=== PATIENT | male | born 1980 | race Caucasian/White ===

== ENCOUNTER → 2021-06-21 12:43 | Outpatient (BNVA) | payer OTHER, SELFPAY | PROVIDERS: Visit Provider Physician Assistant Medical | DX: S80.01XA Contusion of right knee, initial encounter (principal); S80.811A Abrasion, right lower leg, initial encounter; W01.0XXA Fall on same level from slipping, tripping and stumbling without subsequent striking against object, initial encounter; M23.91 Unspecified internal derangement of right knee | CPT/HCPCS: 73564; 99203 ==

== ENCOUNTER → 2021-06-24 13:32 | Outpatient (BNVA) | payer OTHER, SELFPAY | PROVIDERS: Visit Provider Physician Assistant Medical | DX: M23.91 Unspecified internal derangement of right knee (principal) | CPT/HCPCS: 99213 ==

== ENCOUNTER → 2021-06-29 13:46 | Outpatient (BNVA) | payer OTHER, SELFPAY | PROVIDERS: Visit Provider Physician Assistant Medical | DX: S80.01XD Contusion of right knee, subsequent encounter (principal); X58.XXXD Exposure to other specified factors, subsequent encounter; M23.91 Unspecified internal derangement of right knee | CPT/HCPCS: 99213 ==

== ENCOUNTER → 2021-07-08 12:59 | Outpatient (BNVA) | payer OTHER, SELFPAY | PROVIDERS: Visit Provider Physician Assistant Medical | DX: S80.01XD Contusion of right knee, subsequent encounter (principal); X58.XXXD Exposure to other specified factors, subsequent encounter; M23.91 Unspecified internal derangement of right knee | CPT/HCPCS: 99213 ==

== ENCOUNTER 2021-07-19 14:57 | Outpatient (REF) | payer OTHER, SELFPAY ==
--- NOTE | ~2021-07-19 | MR_ITS ---
EXAMINATION: MR KNEE WITHOUT CONTRAST, RIGHT CLINICAL INFORMATION: Right knee pain and swelling. Medial/anterior pain and discomfort with weight-bearing. Evaluate for internal derangement. COMPARISON: Right knee radiographs dated 06/21/2021. TECHNIQUE: MRI of the knee without contrast was performed using routine sequences on a high-field scanner. FINDINGS: MENISCI: Medial Meniscus: Intact Lateral Meniscus: Intact LIGAMENTS: Cruciate: Intact Collateral: Intact EXTENSOR MECHANISM: Intact ARTICULAR CARTILAGE/BONE: Patellofemoral Compartment: Normal Medial Compartment: Non-depressed subchondral fracture within the posterior aspect of the medial tibial plateau measuring up to 1.3 cm in ML dimension. Prominent underlying marrow edema. No articular cartilage defect. Lateral Compartment: Normal JOINT FLUID AND BURSAE: Trace joint effusion. MR/MR knee RT wo con IMPRESSION: 1. Non-depressed subchondral fracture within the posterior aspect the medial tibial plateau measuring 1.3 cm in ML dimension with prominent underlying marrow edema. 2. Trace joint effusion. 3. No acute meniscal or ligamentous injury.
== END 2021-07-19 14:58 | disposition home or self-care (01) ==
LOC: HO.MRI 14:57
PROVIDERS: Visit Provider Internal Medicine
DX: M25.561 Pain in right knee (principal); M23.91 Unspecified internal derangement of right knee; Z91.81 History of falling
CPT/HCPCS: 73721

== ENCOUNTER → 2021-07-20 13:25 | Outpatient (BNVA) | payer OTHER, SELFPAY | PROVIDERS: Visit Provider Physician Assistant Medical | DX: S80.01XD Contusion of right knee, subsequent encounter (principal); X58.XXXD Exposure to other specified factors, subsequent encounter; M23.91 Unspecified internal derangement of right knee | CPT/HCPCS: 99213 ==

== ENCOUNTER 2021-07-22 14:00 | Outpatient (RCR) | payer OTHER, SELFPAY ==
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
--- NOTE | 2021-08-19 10:21 | MHC.PT.DC ---
[facility] [place] Office [place] Office [place] Office [address] Paxton Lawler [address] [phone] F: [phone] F: [phone] F: [phone] F: [phone] Physical Therapy Discharge Report Diagnosis: RIGHT KNEE CONTUSION, INTERNAL DERANGEMENT Date of Surgery: Date of Evaluation: 07/01/21 Date of Discharge: 07/20/21 Treatments to Date: 7 Cancellations to Date: 0 No Shows to Date: 0 Discharge Status: Discharge Summary: John had been progressing well with PT with significant improvement in ROM and strength. Minimal pain. At last attended visit, note states John arrived with no new complaints. He was continued with B LE strengthening exercises. Was challenged with eccentric step down. He would 8 inches very challenging therefore was done with 6 inches. Reports of feeling slightly unstable when he was bending knee past 20 degrees with bird dip. Overall he is progressing well. Continue challenging B LE strength in next session. No adverse response noted to any exercise. However, upon MRI he was found to have a compressed tibial plateau fracture and was referred to orthopedics prior to continuation of PT. As he has not contacted us for additional therapy we will DC at this time and are happy to continue PT in the future if needed. Electronically signed by: April Patel PT, DPT Please sign and return to therapist. Thank you for your referral.
== END 2021-08-19 10:22 | disposition home or self-care (01) ==
LOC: HO.PT 14:00
PROVIDERS: Visit Provider Physician Assistant Medical
DX: S80.01XD Contusion of right knee, subsequent encounter (principal); M23.91 Unspecified internal derangement of right knee
CPT/HCPCS: 97110; 97140; 97161; 97530

== ENCOUNTER → 2021-08-02 13:44 | Outpatient (BNVA) | payer OTHER, SELFPAY | PROVIDERS: Visit Provider Orthopaedic Surgery | DX: S82.141D Displaced bicondylar fracture of right tibia, subsequent encounter for closed fracture with routine healing (principal) | CPT/HCPCS: 99202 ==

== ENCOUNTER 2021-09-20 07:25 | Outpatient (REF) | payer OTHER, SELFPAY ==
--- NOTE | ~2021-09-20 | XR_ITS ---
EXAMINATION: XR KNEE, BILATERAL XR KNEE, RIGHT CLINICAL INFORMATION: Pain in knee. COMPARISON: None TECHNIQUE: AP bilateral knee. Right knee 2 views. FINDINGS: AP BILATERAL KNEE: There is loss of medial compartment joint space in both knees. The lateral compartment joint space is maintained normal. No visible acute fracture, dislocation or lytic process seen. The soft tissues are normal. RIGHT KNEE: The right knee joint space is maintained normal. There is no visible acute fracture, dislocation or subluxation seen. No abnormal joint effusion. XR/XR knee RT 2V IMPRESSION: 1. Mild early degenerative changes in the medial compartments of both knees. 2. The lateral and sunrise views of right knee are unremarkable.
--- NOTE | ~2021-09-20 | XR_ITS ---
EXAMINATION: XR KNEE, BILATERAL XR KNEE, RIGHT CLINICAL INFORMATION: Pain in knee. COMPARISON: None TECHNIQUE: AP bilateral knee. Right knee 2 views. FINDINGS: AP BILATERAL KNEE: There is loss of medial compartment joint space in both knees. The lateral compartment joint space is maintained normal. No visible acute fracture, dislocation or lytic process seen. The soft tissues are normal. RIGHT KNEE: The right knee joint space is maintained normal. There is no visible acute fracture, dislocation or subluxation seen. No abnormal joint effusion. XR/XR knee standing BI IMPRESSION: 1. Mild early degenerative changes in the medial compartments of both knees. 2. The lateral and sunrise views of right knee are unremarkable.
== END 2021-09-20 07:26 | disposition home or self-care (01) ==
LOC: HO.HOSX 07:25
PROVIDERS: Visit Provider Orthopaedic Surgery
DX: S82.141D Displaced bicondylar fracture of right tibia, subsequent encounter for closed fracture with routine healing (principal)
CPT/HCPCS: 73560; 73565; 99212

== ENCOUNTER 2021-11-01 11:54 | Outpatient (REF) | payer OTHER, BC, SELFPAY ==
--- NOTE | ~2021-11-01 | XR_ITS ---
EXAMINATION: XR KNEE, BILATERAL STANDING XR KNEE, RIGHT CLINICAL INFORMATION: Right knee pain. COMPARISON: Right knee radiographs on 09/20/2021. TECHNIQUE: AP view of both knees standing and lateral and sunrise views of the right knee. FINDINGS: There are no significant changes when compared to 09/20/2021. There is very subtle medial compartment joint space loss seen bilaterally. The lateral compartment joint space appears preserved. No evidence of fracture or dislocation. Dedicated views of the right knee demonstrate no significant effusion. The bones appear normally mineralized and there is no evidence of fracture or dislocation. XR/XR knee standing BI IMPRESSION: No significant changes from 09/20/2021. Subtle bilateral medial compartment joint space narrowing.
--- NOTE | ~2021-11-01 | XR_ITS ---
EXAMINATION: XR KNEE, BILATERAL STANDING XR KNEE, RIGHT CLINICAL INFORMATION: Right knee pain. COMPARISON: Right knee radiographs on 09/20/2021. TECHNIQUE: AP view of both knees standing and lateral and sunrise views of the right knee. FINDINGS: There are no significant changes when compared to 09/20/2021. There is very subtle medial compartment joint space loss seen bilaterally. The lateral compartment joint space appears preserved. No evidence of fracture or dislocation. Dedicated views of the right knee demonstrate no significant effusion. The bones appear normally mineralized and there is no evidence of fracture or dislocation. XR/XR knee RT 2V IMPRESSION: No significant changes from 09/20/2021. Subtle bilateral medial compartment joint space narrowing.
== END 2021-11-01 11:55 | disposition home or self-care (01) ==
LOC: HO.HOSX 11:54
PROVIDERS: Visit Provider Orthopaedic Surgery
DX: S82.141D Displaced bicondylar fracture of right tibia, subsequent encounter for closed fracture with routine healing (principal); M25.561 Pain in right knee; X58.XXXD Exposure to other specified factors, subsequent encounter
CPT/HCPCS: 73560; 73565; 99212

== ENCOUNTER 2021-12-22 14:00 | Outpatient (RCR) | payer OTHER, BC, SELFPAY ==
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
--- NOTE | 2022-01-11 11:40 | MHC.PT.DC ---
[facility] [place] Office [place] Office [place] Office [address] Paxton Lawler [address] [phone] F: [phone] F: [phone] F: [phone] F: [phone] Physical Therapy Discharge Report Diagnosis: DISPLACED BICONDYLAR FX OF TIBIA Date of Surgery: NA. ORIGINAL INJURY 06/18/21 Date of Evaluation: 10/20/21 Date of Discharge: 01/11/22 Treatments to Date: 11 Cancellations to Date: No Shows to Date: Discharge Status: Achieved Goals Improved Function Independent with HEP Patient Elected to Stop Discharge Summary: HAS MET MOST PT GOALS EXCEPT RTW (Pt REPORTS HE DOESNT THINK HE IS READY TO RTW YET). TO SEE DR LANDERS ON [place]...ASSESS. DC WITH HOME PROG AND ED RE PROGRESSION VS CONT IN PT 1X/WK FOR HIGH LEVEL ACTIVITIES Pt WAS SEEN BY ORTHO AND PER HIS NOTE WAS FINISHED WITH PT. NO FURTHER APPTS MADE BY Pt Electronically signed by: KRISTY GUTHRIE PT Please sign and return to therapist. Thank you for your referral.
== END 2022-01-11 11:42 | disposition home or self-care (01) ==
LOC: HO.PTWFD 14:00
PROVIDERS: PCP Internal Medicine; Visit Provider Orthopaedic Surgery
DX: S82.141D Displaced bicondylar fracture of right tibia, subsequent encounter for closed fracture with routine healing (principal)
CPT/HCPCS: 97110; 97140; 97161; 97530

== ENCOUNTER 2021-12-27 11:56 | Outpatient (REF) | payer OTHER, BC, SELFPAY ==
--- NOTE | ~2021-12-27 | XR_ITS ---
EXAMINATION: KNEE X-RAY CLINICAL INFORMATION: Pain COMPARISON: Previous x-rays October 2021 TECHNIQUE: Standing AP view of both knees and lateral and sunrise view of the right kidney FINDINGS: Right knee: Bone alignment is normal. No fracture or dislocation is seen. Joint spaces are normal. There is no joint effusion. Standing AP view of the left knee is normal XR/XR knee standing BI IMPRESSION: Unremarkable exam.
--- NOTE | ~2021-12-27 | XR_ITS ---
EXAMINATION: KNEE X-RAY CLINICAL INFORMATION: Pain COMPARISON: Previous x-rays October 2021 TECHNIQUE: Standing AP view of both knees and lateral and sunrise view of the right kidney FINDINGS: Right knee: Bone alignment is normal. No fracture or dislocation is seen. Joint spaces are normal. There is no joint effusion. Standing AP view of the left knee is normal XR/XR knee RT 2V IMPRESSION: Unremarkable exam.
== END 2021-12-27 11:57 | disposition home or self-care (01) ==
LOC: HO.HOSX 11:56
PROVIDERS: Visit Provider Orthopaedic Surgery
DX: M25.569 Pain in unspecified knee (principal)
CPT/HCPCS: 73560; 73565; 99212

== ENCOUNTER → 2022-02-14 13:54 | Outpatient (BNVA) | payer OTHER, BC, SELFPAY | PROVIDERS: PCP Internal Medicine; Visit Provider Orthopaedic Surgery | DX: S82.141A Displaced bicondylar fracture of right tibia, initial encounter for closed fracture (principal); M25.461 Effusion, right knee | CPT/HCPCS: 99212 ==

== ENCOUNTER 2022-03-14 16:29 | Outpatient (REF) | payer OTHER, BC, SELFPAY ==
--- NOTE | ~2022-03-14 | MR_ITS ---
EXAMINATION: MR KNEE WITHOUT CONTRAST, RIGHT CLINICAL INFORMATION: Displaced bicondylar fracture of the tibia. Patellar pain. Anterior swelling. COMPARISON: MRI dated 07/19/2021 TECHNIQUE: MRI of the knee without contrast was performed using routine sequences on a high-field scanner. FINDINGS: MENISCI: Medial Meniscus: Intact Lateral Meniscus: Intact LIGAMENTS: Cruciate: Intact Collateral: Intact EXTENSOR MECHANISM: Quadriceps and patellar tendons are intact. Retinacula are normal. IT band is unremarkable. Peripatellar fat pads are normal. ARTICULAR CARTILAGE/BONE: Patellofemoral Compartment: There is a thin medial patellar plica which crosses the medial trochlear facet with does not produce surrounding chondromalacia or edema signal. Patella is appropriately situated at the trochlea. Articular cartilage is well-preserved. Normal trochlear morphology. Medial Compartment: Previously seen nondisplaced fracture at the medial tibial plateau has healed and is no longer apparent. Articular cartilage is normal. No marrow edema. Normal tibial morphology. Lateral Compartment: Normal JOINT FLUID AND BURSAE: No joint effusion or Guzman's cyst. MR/MR knee RT wo con IMPRESSION: Healed tibial plateau fracture. No residual MRI abnormalities at the knee. Small medial plica without specific findings of plica syndrome.
== END 2022-03-14 16:30 | disposition home or self-care (01) ==
LOC: HO.MRI 16:29
PROVIDERS: Visit Provider Orthopaedic Surgery
DX: S82.141A Displaced bicondylar fracture of right tibia, initial encounter for closed fracture (principal); M25.461 Effusion, right knee; X58.XXXA Exposure to other specified factors, initial encounter; Y93.9 Activity, unspecified; Y92.9 Unspecified place or not applicable; Y99.9 Unspecified external cause status
CPT/HCPCS: 73721

== ENCOUNTER → 2022-03-28 13:34 | Outpatient (BNVA) | payer OTHER, BC, SELFPAY | PROVIDERS: PCP Internal Medicine; Visit Provider Orthopaedic Surgery | DX: S82.141A Displaced bicondylar fracture of right tibia, initial encounter for closed fracture (principal); X58.XXXA Exposure to other specified factors, initial encounter; Y93.89 Activity, other specified; Y92.69 Other specified industrial and construction area as the place of occurrence of the external cause; Y99.0 Civilian activity done for income or pay | CPT/HCPCS: 99212 ==

== ENCOUNTER → 2022-05-09 14:26 | Outpatient (BNVA) | payer OTHER, BC, SELFPAY | PROVIDERS: PCP Internal Medicine; Visit Provider Orthopaedic Surgery | DX: S82.143D Displaced bicondylar fracture of unspecified tibia, subsequent encounter for closed fracture with routine healing (principal) | CPT/HCPCS: 99212 ==

== ENCOUNTER → 2022-06-20 14:21 | Outpatient (BNVA) | payer OTHER, BC, SELFPAY | PROVIDERS: PCP Internal Medicine; Visit Provider Orthopaedic Surgery | DX: S82.141A Displaced bicondylar fracture of right tibia, initial encounter for closed fracture (principal) | CPT/HCPCS: 20610; 99212; J1100 ==

== ENCOUNTER → 2022-06-27 11:58 | Outpatient (BNVA) | payer OTHER, BC, SELFPAY | PROVIDERS: PCP Internal Medicine; Visit Provider Orthopaedic Surgery | DX: Z13.89 Encounter for screening for other disorder (principal) ==

== ENCOUNTER → 2022-08-01 14:19 | Outpatient (BNVA) | payer OTHER, BC, SELFPAY | PROVIDERS: Visit Provider Orthopaedic Surgery | DX: M25.561 Pain in right knee (principal); S82.141D Displaced bicondylar fracture of right tibia, subsequent encounter for closed fracture with routine healing | CPT/HCPCS: 99212 ==

== ENCOUNTER 2022-08-23 12:37 | Day surgery (SDC) | payer OTHER, SELFPAY ==
[2022-08-17 14:54] VITALS: BMI 29.5
--- NOTE | 2022-08-22 09:50 | P.CONAN_ITS ---
Documented by User: Raeann Corey NP 08/22/22 09:50 HPI - Anesthesia Eval Consult details Narrative: 41yo M for Knee Arthroscopy [facility] Active Problems Active Problems: All Active Problems (Updated 08/17/22 @ 14:53 by Fozia Goodrich RN) Tibial plateau fracture (Acute) Effusion, left knee (Acute) Knee effusion, right (Acute) Right knee pain (Acute) Past Medical History Medical History (Updated 08/17/22 @ 14:53 by Fozia Goodrich RN) No pertinent past medical history Surgical History Surgical History (Updated 08/23/22 @ 13:57 by Madison Blank RN) History of vasectomy Hx of tooth extraction Social History Social History Are you a primary small animal caretaker to a significant other at home: No Do you presently have visiting nurse or other home services: No Patient Tobacco Use Status: Never used Tobacco Are you DNR?: No Advance Directives: No Advance Directives Information Provided: Yes Advance Directives on File: No Recently lost weight without trying: No Eating poorly because of decreased appetite: No Nutrition Risks: No Nutritional Risk Meds Allergies Allergy/AdvReac Type Severity Reaction Status Date / Time No Known Allergies Allergy Verified 08/17/22 14:53 Exam Exam Date and Time: August 22, 2022 0950 Height,Weight and Vital Signs: Height 6 ft 2 in Weight 104.326 kg Assessment and Plan Assessment Anesthesia Assessment: Chart Reviewed Documented by User: Pierre Arcos MD 08/23/22 17:29 [facility] Past Medical History Medical History (Updated 08/17/22 @ 14:53 by Fozia Goodrich RN) No pertinent past medical history Family History Family history of problems with anesthesia: No Surgical History Surgical History (Updated 08/23/22 @ 13:57 by Madison Blank RN) History of vasectomy Hx of tooth extraction History of Problems with Anesthesia: No Social History Social History Are you a primary small animal caretaker to a significant other at home: No Do you presently have visiting nurse or other home services: No Patient Tobacco Use Status: Never used Tobacco Are you DNR?: No Advance Directives: No Advance Directives Information Provided: Yes Advance Directives on File: No Recently lost weight without trying: No Eating poorly because of decreased appetite: No Nutrition Risks: No Nutritional Risk Meds Allergies Allergy/AdvReac Type Severity Reaction Status Date / Time No Known Allergies Allergy Verified 08/17/22 14:53 Exam Airway Mallampati Class: III TM Dist: >3cm Neck ROM: Full Loose/Missing/Broken Teeth: No Assessment and Plan Assessment Anesthesia Assessment: Anesthesia Plan Discussed Final Anesthetic Review Family History of Problems with Anesthesia: No History of Problems with Anesthesia: No NPO: Yes ASA Class: II Final Preanesthetic Review: No Changes in Pt Med Stat, Meds/Allgs Chart Reviewed, Consent Obtained/Reviewed and Anes Risks/Benef Reviewed Patient Risk: Low Procedure Risk: Low Anesthetic Plan Anesthetic Plan: GA Disposition: Standard PACU
[2022-08-23] VITALS (10 sets, daily range): BP systolic 122–147; BP diastolic 74–91; PULSE 82–108; RESP 11–20; TEMP 36.6–36.9; O2SAT 95–98
[2022-08-23] MEDS: Lactated Ringers 1,000 ML 100 ML IVCONT (13:56)
--- NOTE | 2022-08-23 15:45 | MHC.SHP ---
Pre-Procedural Eval Section A Date of Service: 08/23/22 The patient is an INPATIENT: No Changes since office visit: No Cold of Flu in the past 2 weeks, No New Medical Problems, No Changes in Medication and No Patient answered all questions The History & Physical has been completed within 30 days and I have reviewed it.: Yes Section B Chief Complaint: Pain in right knee Allergies: Allergies Allergy/AdvReac Type Severity Reaction Status Date / Time No Known Allergies Allergy Verified 08/17/22 14:53 Plan I have reviewed the history and physical and performed a pertinent physical examination on my patient. No changes have occurred unless specified. Time Spent With Patient Time: Total time managing care of this patient today ____ minutes.
--- NOTE | 2022-08-23 16:47 | PM.OP ---
Brief Operative Note Date of Service: 08/23/22 Pre-op diagnosis: Right knee internal derangement Post-op diagnosis: other (Right knee medial plica) Procedure: Right knee with plica resection Surgeon: Bob Gonzalez MD Anesthesia: GETA and local Was an Stove Carriage Operator used for this Procedure?: No Estimated blood loss (mL): 0 Tourniquet time (min): 15 IV fluids (mL): 500 Pathology: none sent Condition: stable Disposition: PACU
[2022-08-23] MEDS: fentaNYL citrate/PF 100 MCG/2 ML VIAL 25 MCG IVPUSH (17:34)
[2022-08-23] MEDS: Acetaminophen 325 MG TABLET 650 MG PO (17:40)
[2022-08-23] MEDS: oxyCODONE HCl Immed Release 5 MG TABLET PO (17:41)
[2022-08-23] MEDS: Ketorolac Tromethamine 30 MG/ML VIAL 15 MG IVPUSH (17:48)
--- NOTE | 2022-08-25 13:22 | W.PM.OPN ---
Operative Note Operative Note Date of Service: 08/23/22 Narrative: Date of Service: 08/23/22 Pre-op diagnosis: Right knee internal derangement Post-op diagnosis: other (Right knee medial plica) Procedure: Right knee with plica resection Surgeon: Bob Gonzalez MD Anesthesia: GETA and local Was an Geologic Technician used for this Procedure?: No Estimated blood loss (mL): 0 Tourniquet time (min): 15 IV fluids (mL): 500 Pathology: none sent Condition: stable Disposition: PACU Procedure in detail: Patient was brought to the operating room placed supine on the arthroscopic table and prepped and draped in standard sterile fashion. A time-out was called to identify proper site proper procedure proper surgeon and IV antibiotics per weight were administered. I began by exsanguinating the limb and insufflating tourniquet to 300 mm Hg. Then made a standard anterolateral stab incision. The knee was insufflated with water and 30 degree arthroscope was placed. There was grade 0 fibrillations of the patella but overall suprapatellar pouch was clean and the gutters were clean.There was a prominent and abrading medial plica that made descension into the medial compartment difficult. I descended into the medial compartment anteriorly where I made my medial portal under direct visualization. There was a normal medial and lateral compartment and the ACL was intact. I used a combination of shaver and cautery to remove the medial plica and some additional fibrous bandes of the the distal lateral aspct of the lateral gutter. I did a limited debridement of the infra-patellar fat pad and the MF ligament was left intact. I then removed all instrumentation and closed the portals with skin glue. 25 mL of 2% Marcaine with epinephrine was injected into the joint and the surrounding soft tissues. Patient was then placed in sterile dressing extubated brought recovery room stable condition. There were no known complications.
== END 2022-08-23 18:25 | disposition home or self-care (01) ==
LOC: HO.SSS 12:38
PROVIDERS: Visit Provider Orthopaedic Surgery
PROC: (CPT 29870; principal; 2022-08-23 15:00)
DX: M25.561 Pain in right knee (principal); M23.91 Unspecified internal derangement of right knee; M67.51 Plica syndrome, right knee
CPT/HCPCS: 29876; J0690; J1100; J1885; J2250; J2405; J3010

== ENCOUNTER → 2022-09-19 14:17 | Outpatient (BNVA) | payer OTHER, BC, SELFPAY | PROVIDERS: Visit Provider Physician Assistant | DX: Z13.89 Encounter for screening for other disorder (principal) ==

== ENCOUNTER → 2022-10-20 13:53 | Outpatient (BNVA) | payer OTHER, BC, SELFPAY | PROVIDERS: Visit Provider Orthopaedic Surgery | DX: Z47.89 Encounter for other orthopedic aftercare (principal); Z98.890 Other specified postprocedural states | CPT/HCPCS: 99212 ==

== ENCOUNTER 2022-12-09 13:45 | Outpatient (AMB) | payer BC, SELFPAY ==
--- NOTE | 2022-12-09 13:49 | A.OFFVIS_ITS ---
Intake Vital Signs 12/09/22 13:54 Height 6 ft 2 in Weight 230 lb BMI 29.5 Intake Visit Reasons: OV- S/P -RT knee WC 08/23/22 NE Intake Note: John is a 42 year old male who presents today for a post operative appointment s/p Right Knee 08/23/22. States he is doing a little bit better with his ROM. Cont's to have pain and swelling. Allergies No Known Allergies Allergy (Verified 12/09/22 13:53) HPI OV- S/P -RT knee WC 08/23/22 NE 2 HPI Details 42-year-old male who presents in the office today 3 month status post right knee arthroscopy with plica resection, which was performed on 08/23/[address] Gonzalez. He states he is doing a little better with his ROM. He states he continues to have pain and edema. He states the edema has been improving. He states the physical therapist was stating it was being caused by the quad not being strong enough. He states he is concerned with the pain and edema. He states he gets increased pain in the front of his knee with walking down stairs and prolonged ambulation. He denies tingling. He confirms occasional numbness when he knee leonora. He states it leonora frequently. He states he went for a walk and the knee gave out 6 time. He confirms he has 2 session remaining of physical therapy. He feels he could do the exercises at home. He will continue to work with physical therapy to contin ue to work on quad strength. [facility] Medical History No pertinent past medical history Surgical History History of vasectomy Hx of tooth extraction Social History Are you a primary personal care service provider to a significant other at home: No Do you presently have visiting nurse or other home services: No Patient Tobacco Use Status: Never used Tobacco Review of Systems Const All systems reviewed & are unremarkable except as noted in HPI and below Physical Exam Vital Signs: BMI result Body Mass Index 29.5 Const General: cooperative and no acute distress Orientation/consciousness: patient oriented x3 Resp Effort & Inspection: normal respiratory effort and able to speak in complete sentences Cardio Peripheral pulses: Peripheral pulses 2+ throughout Neuro General: patient oriented x3 Extrem Other: Right knee: Incision site is fully healed. No signs of infection. ROM is 0-100 degrees. NVI. Psych Mental Status: mental status grossly normal Assessment & Plan Assessment & Plan (1) Status post arthroscopic knee surgery: Comment: right knee arthroscopy with plica resection 08/23/2022 NE Code(s): Z98.890 - Other specified postprocedural states Plan Mr. Castro is a 42-year-old male who presents in the office today 3 month status post right knee arthroscopy with plica resection, which was performed on 08/23/[address] Gonzalez. He states he is doing a little better with his ROM. He states he continues to have pain and edema. He states the edema has been improving. He states the physical therapist was stating it was being caused by the quad not being strong enough. He states he is concerned with the pain and edema. He states he gets increased pain in the front of his knee with walking down stairs and prolonged ambulation. He denies tingling. He confirms occasional numbness when he knee leonora. He states it leonora frequently. He states he went for a walk and the knee gave out 6 time. He confirms he has 2 session remaining of physical therapy. He feels he could do the exercises at home. He will continue to work with physical therapy to continue to work on quad strength. He will call the office if physical therapy needs a new order. He states he is supposed to be getting Cryocuff, but has not heard anything from them. Follow up will be in 2-[address] Gonzalez, or sooner if needed. Patient Instructions: Scribed for Laura Jackson PA-C by Shanice Stover biomedical instrument technician, on 12/07/2022 at 1:52 pm, EST. Your attestation Coding Level of Care Code Est Pt Level 3 (90659) Diagnoses Status post arthroscopic knee surgery Z98.890
[2022-12-09 13:54] VITALS: BMI 29.5
== END 2022-12-09 14:40 | disposition home or self-care (01) ==
PROVIDERS: Visit Provider Physician Assistant
DX: S82.141D Displaced bicondylar fracture of right tibia, subsequent encounter for closed fracture with routine healing (principal)
CPT/HCPCS: 99213

== ENCOUNTER → 2022-12-09 13:45 | Outpatient (BNVA) | payer OTHER, BC, SELFPAY | PROVIDERS: Visit Provider Physician Assistant | DX: M25.561 Pain in right knee (principal); R60.9 Edema, unspecified; Z98.890 Other specified postprocedural states | CPT/HCPCS: 99212 ==

== ENCOUNTER → 2022-12-13 14:00 | Outpatient (RCR) | payer OTHER, BC, SELFPAY ==
--- NOTE | 2022-09-09 09:36 | MHC.PT.OD ---
[facility] [place] Office [place] Office [place] Office [address] Paxton Lawler [address] [phone] F: [phone] F: [phone] F: [phone] F: [phone] Physical Therapy Daily Note Diagnosis: PT eval and treat: Z98.890: Other specified postprocedural states, status post arthroscopic knee surgery 08/25/22 signed by Laura Amezcua PA-C Date of Surgery: 08/23/22 Date of Evaluation: 09/02/22 Date of Treatment: 09/09/22 Treatments to Date: Cancellations to Date: No Shows to Date: Authorized Visits: 2 Insurance End Date: Precautions/ Contraindications:WBAT R LE Subjective: Pt called to cancel appt at 11:00am stated he had to stay at home had digital librarian's coming. Pt was offered different time but deferred taking an appt. Pain Score and Location: 6 R knee Objective Flowsheet: Tests & Measures see eval Exercises Seated calf stretch with strap 3x30 sec Seated hamstring stretch x 30 sec APs x 30 Quad set 5 sec hold 2x10 reps Quad set + SLR (AAROM with therapist assist) 2x5 reps Heel slides 5 sec hold 2x10 reps Icing knee, performing low grade ROM often and frequently, need to obtain recommendation from [place] office on what to take over the counter to ease sx, reports use of meloxicam... phone call placed to ortho therapist spoke with Paulette during appt time who was going relay inquiry to Laura Jackson regarding recommendations. Education re: self massage for gentle HS posterior knee self care in combo with goal of increasing knee extension AROM Gait training with B crutches (pt ambulated in with B crutches not weightbearing through RLE) with step through pattern. He has decreased heel strike through RLE with decreased weight bearing noted throughout RLE vs LLE, over compensation with B UEs on crutches. ICE TO R KNEE END OF SESSION X 5 MIN Modalities Assessment: 09/09/22: Pt called to cancel appt Has roofers coming has to stay home. 09/07/22:Pt is motivated with PT however he continues to lack ROM. He is able to achieve -15 deg knee extension, and achieved 60 deg knee flexion this date. He has fair quad activation noted with quad set and is unable to perform SLR without assist. ?Pt may benefit from trial of NMES if he continues to lack quad strength (if no contraindications to modalities). Discussed importance of performing HEP, pt verbalized understanding. No adverse reaction to PT this date. Continue to progress per pt tolerance. PT Plan: 3x/week x 6 weeks ROM ext>flex quad strengthening, pre gait gait trainig with crutch for stairs. Short Term Goals: 1. AAROM R knee extension to -10 degrees. 2. AAROM R knee flexion to 90 degrees. 3. SLR into R knee extension with good eccentic control. 4. Wean from use of 2>1> no axillary crutches with symmetrical weight-bearing and good stance control R LE. 5. Negotiate an 8 inch step with good dynamic balance. 6. Ascend/descend 8 inch step with good dynamic balance. Inventory Control/Shipping Receiving Goals: 1. AAROM>AROM R knee extension to 0 degrees. 2. AAROM R knee flexion to 130 degrees 3. Reciprocal gait pattern with no AD community distances on uneven terrain. 4. Demonstrate functional squat symmetrically with good dyamicc balance. 5. Strength 5/5 R knee extension. 6. 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 7. Resume jog>running program as cleared per . Electronically signed by: Archana Causey, PT, DPT
--- NOTE | 2022-09-19 11:44 | MHC.PT.OD ---
[facility] [place] Office [place] Office [place] Office [address] Paxton Lawler [address] [phone] F: [phone] F: [phone] F: [phone] F: [phone] Physical Therapy Daily Note Diagnosis: PT eval and treat: Z98.890: Other specified postprocedural states, status post arthroscopic knee surgery 08/25/22 signed by Laura Amezcua PA-C Date of Surgery: 08/23/22 Date of Evaluation: 09/02/22 Date of Treatment: 09/16/22 Treatments to Date: Cancellations to Date: No Shows to Date: Authorized Visits: 2 Insurance End Date: Precautions/ Contraindications:WBAT R LE AROM -8 to 80 AAROM seated 90 AAROM heel slide in supine 92 Subjective: Presents to PT with two crutches, reports he stopped taking naprozen and anti-inflammatories last week. Reports has been performing knee stretches 1x/daily. Has been doing QS multiple times daily. Has reported knee buckling several times. To ortho Monday at 2:30pm. Pain Score and Location: 6 R KNEE Objective Flowsheet: Tests & Measures Pt offered PT appts for next Monday and Monday in PT due to concern for motion stiffness. Pt deferred Monday due to ortho appt at 2:30pm. Pt offered 10 am or 11am Monday. Exercises AAROM seat #12 for gentle rocking> able to make posterior revolution after 2 minutes with cues for guidance/support. NO added resistance AROM knee ext -8 degrees. Review of seated HS and gastroc stretch (pt expresses has been performing once daily vs recommendation of 3x/daily), AAROM seated heel slides cues for reduction of guarding and cues to increase flexion seated heel slide able to achieve 90 degrees, AAROM seated heel slide with strap to 92 degrees. AROM quad set with towel roll x 5 sec hold x 2 sets 10R, quad set without towel roll x 10R with improved quad contraction observed, AAROM SLR with aide of therapist midrange to height of buchanan, educated re: AAROM for SLR for home with cues to ensure quad activation first control, AAROM strap in supine to 92 degrees. Icing knee, performing low grade ROM often and frequently, need to obtain recommendation from MD office on what to take over the counter to ease sx, reports use of meloxicam... phone call placed to ortho therapist spoke with Paulette during appt time who was going relay inquiry to Laura Jackson regarding recommendations. Education re: self massage for gentle HS posterior knee self care in combo with goal of increasing knee extension AROM Review of gait training with crutches for ascending/descending with use no rail reviewed (as pt reports no entrance to primary entrance of home). ICE TO R KNEE END OF SESSION X 5 MIN Modalities Assessment: 09/16/22: Pt AROM -8 to 80, AAROM -5 to 92 degrees. Weak quad requires AAROM assist for SLR at this time (for partial ROM). Some hx buckling reported reassured this is likey due to his swelling/lack of full extension. Pt encouraged to increase weight-bearing through his R LE (noted to weight shift away from his R LE) and perform increased AROM/AAROM flexion of knee (observed guarding and not bending knee during functional mobility). Pt encouraged to continue AAROM ext>flexion with a higher stretching frequency at home. Therapist is advising increased frequency of PT to 3x/wek and he was given a third appt due to poor ROM/ stiffness. He states he stopping taking his anti-inflammatories last week (Monday) and was advised to go back to using these until he could address with his surgeon. Reiterated the importance of gaining full extension as a priority. Pt continues to use two crutches this date, we reviewed gait training in how to taper to one crutch as able. Pt to see orthopedics today 09/19/22 at 2:30pm. PT Plan: 3x/week x 6 weeks ROM ext>flex quad strengthening, pre gait gait trainig with crutch for stairs. Short Term Goals: 1. AAROM R knee extension to -10 degrees. 2. AAROM R knee flexion to 90 degrees. 3. SLR into R knee extension with good eccentic control. 4. Wean from use of 2>1> no axillary crutches with symmetrical weight-bearing and good stance control R LE. 5. Negotiate an 8 inch step with good dynamic balance. 6. Ascend/descend 8 inch step with good dynamic balance. Group Home Goals: 1. AAROM>AROM R knee extension to 0 degrees. 2. AAROM R knee flexion to 130 degrees 3. Reciprocal gait pattern with no AD community distances on uneven terrain. 4. Demonstrate functional squat symmetrically with good dyamicc balance. 5. Strength 5/5 R knee extension. 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 7. Resume jog>running program as cleared per MD. Electronically signed by: Archana Causey, PT, DPT
--- NOTE | 2022-10-14 15:40 | MHC.PT.OD ---
[facility] [place] Office [place] Office [place] Office [address] Paxton Lawler [address] [phone] F: [phone] F: [phone] F: [phone] F: [phone] Physical Therapy Daily Note Diagnosis: PT eval and treat: Z98.890: Other specified postprocedural states, status post arthroscopic knee surgery 08/25/22 signed by Laura Amezcua PA-C Date of Surgery: 08/23/22 Date of Evaluation: 09/02/22 Date of Treatment: 10/14/22 Treatments to Date: 16 Cancellations to Date: No Shows to Date: Authorized Visits: 16 Insurance End Date: 10/14/22 Precautions/ Contraindications:WBAT Subjective: Pt expressing increasing confidence everyday I feel better with it , reports attempting to mow lawn with rider, was able to get on/off mower with hesitation, reports challenged with emptying bags on back. Continues to report buckling with straight ambulation randomly at times. (Presents using adjustable cane) but reports has been using it less in the home. Reports use of 600mg ibuprofen and ice, reports increased swelling yesterday. Pain Score and Location: 5 R KNEE (MEDIAL) Objective Flowsheet: Tests & Measures AROM 0 degrees ext AAROM flexion 135 degrees Improving strength with SLR Unable to perform step-up 4 inch or more without report of pain. Weakness/ challenge w/ quad work R LE. Pt has resumed driving. 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 Frontal step-ups 2 inch trialed (pain anterior knee so this was D/C). AAROM heel slide with strap x 10R x 20 sec hold to 135 degrees. Passive knee extension with bolster x 10 minutes at end of session with ice strapped anterior/posterior knee. Toe taps in standing CKC x 2 sets 10R. STANDING FOR STEP UPS 6 INCH STEP LEADING WITH R UP AND L DOWN X 5 R, SIDEWARDS X 10 R, LUNGE ON STEP WITH KNEE FLEXION FOR TAP UPS (WITH BARS) X 10 R, TKE/PUSH THROUGHS WITH R LE ON BOSU, LEG PRESS WITH GREEN TB IN SIT X 10 R ROCKTAPE for V strip tibiofemoral joint off-loading pressure with education re: application/removal trialed with step-up/down TKE with black band x sets 10R , cues for heel strike and increased knee extension in stance. Therapist called [facility] to inquire ability to borrow a std cane as pt does not have one and will not need terminal manager vs purchasing one, LM with nurse Alexandra. Patient to follow up with this. [facility] [address] [place] [address] [address] [place] [address] Office Visit Report Signed Patient: John CastroMR#: [id number] : 1980Acct:[id number] Age/Sex: 41 / MADM/SER Date: 09/19/22 Loc: HO.HOSADM/SER Time:1417 Attending Provider: Laura Jackson PA-C cc: Physician,Unknown ~ Intake Vital Signs 09/19/22 14:27 Height 6 ft 2 in Weight 230 lb BMI 29.5 Intake Visit Reasons: PO R KNEE 08/23/22 NE Intake Note: John is a 41 year old male who presents today for his post op visit for his right knee , 08/23/22 NE. Patient reports his swelling has improved and is getting his mobility back. He states that physical therapy is going good so far. Allergies No Known Allergies Allergy (Verified 09/19/22 14:41) HPI PO R KNEE 08/23/22 NE HPI Details 41-year-old male who presents in the office today 1 month status post right knee arthroscopy with plica resection, which was performed on 08/23/[address] Gonzalez. The patient reports his edema had improved and he is getting his mobility back. He confirms participating in physical therapy and states it is going good. [facility] Medical History No pertinent past medical history Surgical History History of vasectomy Hx of tooth extraction Social History Are you a primary restorative care technician to a significant other at home: No Do you presently have visiting nurse or other home services: No Patient Tobacco Use Status: Never used Tobacco Review of Systems Const All systems reviewed & are unremarkable except as noted in HPI and below Physical Exam Vital Signs: BMI result Body Mass Index 29.5 Const General: cooperative and no acute distress Orientation/consciousness: patient oriented x3 Resp Effort & Inspection: normal respiratory effort and able to speak in complete sentences Cardio Rate: regular rate Peripheral pulses: Peripheral pulses 2+ throughout GI Palpation (GI): Soft to palpation Skin Lesions: no lesions Rashes: no rashes Neuro General: patient oriented x3 Extrem Other: Right knee: Incision site is clean, dry, and intact. Mild edema. No erythema or drainage. ROM is 0-90 degrees. Significant quad weakness. NVI. Psych Mental Status: mental status grossly normal Assessment & Plan Assessment & Plan (1) Status post arthroscopic knee surgery: Comment: right knee arthroscopy with plica resection 08/23/2022 NE Code(s): Z98.890 - Other specified postprocedural states Plan Mr. Castro is a 41-year-old male who presents in the office today 1 month status post right knee arthroscopy with plica resection, which was performed on 08/23/[address] Gonzalez. The patient reports his edema had improved and he is getting his mobility back. He confirms participating in physical therapy and states it is going good. The patient will continue to work with physical therapy on ROM and quad strength. He will remain out of work until follow up. Follow up will be in 4 weeks, or sooner if needed. Patient Instructions: Scribed for Laura Jackson PA-C by Shanice Stover director biomedical engineering, on 09/19/2022 at 2:18 pm, EST. I, Laura Jackson PA-C, have personally reviewed and agreed with the information entered by the director biomedical engineering. 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 Pt has attended 16/16 sessions post operatively demonstrating improvements in strength, ROM and mobility. He struggled with gaining full extension early in his post op recovery. His edema impacted his quad control. He was increased from 2x/week> 3x/week to address these deficits. He has since obtained AAROM>AROM full extension. He reports prn use of anti-inflammatories over the counter and use of ice. He has been encouraged to try and wean from use of adjustable cane in recent days (was formerly using bilateral axillary crutches). He is challenged with eccentric work and reports pain with step-up/step-downs >2 inches in height. He has been attending skilled PT services at a frequency of 3x/week. Please advise. He has shown progression in his ability to advance to 2 inch step-downs but has been expressing sharp anterior medial knee sx with attempt of anything higher than 2 inches during CKC. He was advised to perform toe-taps today for his home CKC progression at home with early quick fatigue (observed in the office). Pt has a follow up with orthopedics on 10/20/22. Therapist continues to recommend frequency of 3x/week to advance strength to prepare for dynamic RTW demands. THank you for this this referral. PT Plan: 3x/week x 6 weeks ROM ext>flex quad strengthening, pre gait gait trainig with crutch for stairs. Short Term Goals: 1. AAROM R knee extension to -10 degrees. 2. AAROM R knee flexion to 90 degrees. 3. SLR into R knee extension with good eccentic control. 4. Wean from use of 2>1> no axillary crutches with symmetrical weight-bearing and good stance control R LE. 5. Negotiate an 8 inch step with good dynamic balance. 6. Ascend/descend 8 inch step with good dynamic balance. Drug Discovery Informatics Specialist Goals: 1. AAROM>AROM R knee extension to 0 degrees. 2. AAROM R knee flexion to 130 degrees 3. Reciprocal gait pattern with no AD community distances on uneven terrain. 4. Demonstrate functional squat symmetrically with good dyamicc balance. 5. Strength 5/5 R knee extension. 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 7. Resume jog>running program as cleared per MD. Electronically signed by: Archana Causey, PT, DPT
--- NOTE | 2022-12-05 15:43 | MHC.PT.OD ---
[facility] [place] Office [place] Office [place] Office [address] Paxton Lawler [address] [phone] F: [phone] F: [phone] F: [phone] F: [phone] Physical Therapy Daily Note Diagnosis: PT eval and treat: Z98.890: Other specified postprocedural states, status post arthroscopic knee surgery 08/25/22 signed by Ryan Amezcua PA-C Date of Surgery: 08/23/22 Date of Evaluation: 09/02/22 Date of Treatment: 12/05/22 Treatments to Date: Cancellations to Date: No Shows to Date: Authorized Visits: 18 Insurance End Date: 10/14/22 Precautions/ Contraindications:WBAT Approval for additional 3x/week x 6 weeks starting 10/15/22 On 11/14/22 request for more was made. Confirmation received on 11/18/22. Four additional weeks for auth was obtained starting on 11/27/22 x 2x/week. Subjective: They called to move my appt time on Monday with Dr. Gonzalez. I got a roller bar for the ice my thigh and I think that has helped with the swelling but I still cant do the stairs. Im concerned about the pain and it seems like it did last time before I had the surgery. Pain Score and Location: 9/10 R knee Objective Flowsheet: Tests & Measures AROM 0 to 130, SLR fair with fatigue and pain reported. Pt unable to crouch without significant weight shift to the left. Unable to kneel on the R knee. Pt able to kneel on the L side with guarding of the R knee noted. L SLS 20 seconds, R SLS fair with knee locked. Poor ability to perform single leg mini squat R LE. Poor tolerance for stairs. Pt able to descend stairs but has report of sharp pain 6 inch, pain rated as 9-10/10. Pt reports he has been walking around his home daily reports ongoing buckling. He has poor habits of trying to compensate with hip ER, and expresses he continues to express lifting his leg up and down when coming up onto the bed. Pt verbalizes guarding with movement patterns and has been slow to progress in his early post op recovery due to edema/pain/slow to transition off of std cane. Exercises SCIFIT bike #10 HOLES SHOWING (SEAT DEPTH #8 SHOWING): L hill program X 10 MIN WARM UP. Assessment for ROM/strength/mobility/ crouching/ squatting, strength/screening for stairs- reassessment for stairs Pt able to perform L SLS mini squat, R LE unable due to poor quad strength/control/pain. L LE single heel raise WFL, decreased stability on the R LE SLS tasks, pt able to perform R LE 10 seconds. Poor dynamic stability of the R LE observed. Review of quad stretching prone with strap reviewed frequency, step-up/step-down to perform at home to simulate activities in the office, prone hip extension over pball with R LE extended with L LE up and down (into hip extension) fair tolerance. Review of goal of need to advance CKC and dynamic stabilization R knee. STEP UPS 6 INCH STEP LEADING WITH R ANT AND LAT X 2 SETS OF 10 EA, STANDING SLS R FOR 4 WAY SHLDER WITH GREEN TB X 10 R EA DIRCTION IASTM HG #9 strumming to quadriceps completed with sit<>stand and stand<>sit x 5R with cues for slow eccentric control (pt noted to have hand on chair for support). ROCKTAPE V strip for offloading patellar tendon with education re: application/removal indications for use. TKE with black band x sets 10R , cues for heel strike and increased knee extension in stance. Therapist called [facility] to inquire ability to borrow a std cane as pt does not have one and will not need joint terminal attack controller vs purchasing one, LM with nurse Morris. Patient to follow up with this. self care HEP program issued in writing see chart. Modalities Knee extension stretch with ice anterior/posterior knee x 10 minutes. Assessment: 12/05/22: Pt has attended 25 visits of PT to date with slow gains in strengthening tolerance. AROM 0-130, AAROM 0-135. SLR fair>good depending on level of fatigue. Pt exhibits poor tolerance for eccentrics activity. Pt is noted to express ongoing sharp pain anterior distal patella>proximal tibia. Pt expresses compliance with quadriceps stretching prone with strap; today he reports obtaining a cooling roller bar last week (therapist advised earlier in recovery benefits roller bar for STM/icing to aide in ROM/edema management). Therapist has educated and encouraged patient to perform HEP with good compliance reported. His R LE has improved in quadriceps activation/ muscle tone since last assessment but continues to exhibit increased edema compared to uninvolved extremity (L supra patella 42.0 cm, R supra patella 42.0 cm, jt line tibiofemoral R 39.0 cm, jt line tibiofemoral L 36.0 cm, infra patella L 33.5 cm, R 36 cm. He is unable to kneel on his R Knee, (reports sharp pain). He is limited in his ability to crouch and can squat about 45 degrees before expressing pain in same area. He reports pain with ascending and descending stairs, worse with descending stairs. He expresses ongoing status of continued R LE buckling daily ( specifically on flat terrain gravel at home when walking his dogs). He has been performing step-up and step-down in therapy with advancement of increasing reps and height, however he continues to report status of doing stairs one step at a time due to his pain when in his home or out in the community. He was out of town for vacation a few weeks back and reported was sore after doing more walking and stairs than normal. He reports increased use of hand rails for stairs. He expresses DOMS after PT for a day or so. Pt has a follow up with Dr. Gonzalez on 12/09/22 in the afternoon. 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 Pt verbalizes frustration with slow recovery to date, has concerns for being able to RTW at baseline PLOF. He has current poor ability to complete dynamic stabilization of the R LE, cannot walk briskly (running not attempted) and is noted to exhibit antalgic gait at times. Poor eccentric strength of quadriceps is observed. Please advise. Pt has started to showcase some level of plateau for tolerance for step-up/step-downs. Pt has been encouraged to perform tasks within his pain level however he has bee guided to listen to his body in regard to tolerance/respect for his pain. Please advise if in recommendation for more PT please provide an updated script to support this. 12/02/22 Pt challenged with physio-ball activities. Poor tolerance for ongoing eccentrics and stabilization of R LE for dynamic tasks on pball. Poor tolerance for active hip extension of the L LE with the physio-ball and R LE stabilizing. 11/24/22: Pt reports ongoing buckling of the knee but expresses some reduction in anterior sx in the tibia with CKC. Will benefit from progression of CKC, pball exercises, step downs as tolerated. Pt continues to report intolerance for ascending/descending stairs. He is noted to demonstrate decreased stance phase, increased knee flexion in stance despite cues to improve stride/knee extension in stance. He does report compliance with toe/taps/ pre-gait activities. 11/21/22: Pt continues to exhibit eccentric weakness of quadriceps. Erythema response with IASTM to quadriceps lateral>medial quad. Educated self care CFM to patellar tendon, reviewed taping tachnique as potential for self care. Knee> ankle on R LE appears slightly swollen compared to L LE. Pt encouraged to ice daily prn for pain/edema management. Ptgiven updated HEP sheets for home program, encouraged toe taps, step downs, and eccentric work for home. 11/17/22: Full extension to 140 deegrees. Fatigue with CKC, some report of episodic knee pain with weight shifts on wobble board however improved tolerance from previous session 11/14/22 Pt returns today after being out of town for (was last seen 12 days ago). Pt AROM 0 to 125 degrees. SLR has improved since initial evaluation but continues to exhibit weaknes at end range. Visible fatigue/quiver is noted with end range. (+) Fortino test R positive quadriceps, R hip flexor tightness (+) L hip flexor, L side also tight. Pt expressed relief with modified hip flexor stretch over mat and with prone strap. Pt encouraged to focus on flexibility of quad>hip flexors and work height of SLR. 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 Pt continues to require skilled PT at a frequency of 2x/week x 4 weeks address end ranges of motion, improve strength, and restore functional mobility to resume PLOF as transit police officer. CHALLENGED WITH ECCENTRIC QUAD WORK, HS WORK AND PROPRIOCEPTION WORK. TO ICE AT HOME. PT Plan: Await plan/follow up with Dr. Gonzalez on Monday12/09/22. Short Term Goals: 1. AAROM R knee extension to -10 degrees. met 2. AAROM R knee flexion to 90 degrees. met 3. SLR into R knee extension with good eccentic control. fair at times 4. Wean from use of 2>1> no axillary crutches with symmetrical weight-bearing and good stance control R LE. 5. Negotiate an 8 inch step with good dynamic balance. 6. Ascend/descend 8 inch step with good dynamic balance. Canal Driver Goals: 1. AAROM>AROM R knee extension to 0 degrees. 2. AAROM R knee flexion to 130 degrees 3. Reciprocal gait pattern with no AD community distances on uneven terrain. 4. Demonstrate functional squat symmetrically with good dyamicc balance. 5. Strength 5/5 R knee extension. 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 7. Resume jog>running program as cleared per . Electronically signed by: Archana Causey, PT, DPT
== END | disposition home or self-care (01) ==
LOC: HO.PTWFD 08-29 10:20 → HO.PT 09-07 12:00 → HO.PTWFD 09-14 14:00
PROVIDERS: Visit Provider Physician Assistant
DX: Z98.890 Other specified postprocedural states (principal)
CPT/HCPCS: 97014; 97110; 97116; 97140; 97150; 97162; 97164; 97530; 97535

== ENCOUNTER 2023-01-02 14:22 | Outpatient (AMB) | payer BC, SELFPAY ==
--- NOTE | 2023-01-02 14:25 | A.OFFVIS_ITS ---
Intake Intake Visit Reasons: OV- S/P -RT knee 08/23/22 NE Intake Note: John is a 42 year old male who presents today for a follow up of his right knee. Hx of Right Knee 08/23/22. He has recieved a Ice Device which he has been using the device.He states he is concerned with the pain and edema. He states he gets increased pain in the front of his knee with walking down stairs and prolonged ambulation. He denies tingling. He confirms occasional numbness when he knee leonora. He states it leonora frequently. He has been working with physical therapy, which he does feel that his quad has gained strength. He remains out of work at this time. Allergies No Known Allergies Allergy (Verified 12/09/22 13:53) HPI OV- S/P -RT knee 08/23/22 NE HPI Details John is a 42 year old man who returns ~4 months S/P right knee plica resection. He says he continues to have a sharp pain in the anterior of his knee with going downstairs or prolonged walking activities. He says is knee leonora often when walking. He continues to work with PT on quad strengthening exercises, which he says has been helping him. He has been using a Cryo-cuff device, which he finds helpful. but he continues to be concerned with his pain & swelling. He says his pain feels similar to prior to his surgery, and he is concerned that this will not resolve. He remains out of work as a [employer] Medical History No pertinent past medical history Surgical History History of vasectomy Hx of tooth extraction Social History Are you a primary pediatric critical care nurse to a significant other at home: No Do you presently have visiting nurse or other home services: No Patient Tobacco Use Status: Never used Tobacco Review of Systems Const All systems reviewed & are unremarkable except as noted in HPI and below Physical Exam Const General: no acute distress and alert Orientation/consciousness: patient oriented x3 Neuro General: patient oriented x3 Extrem Other: Right Knee: Well-healed portals 0-130 degrees ROM with crepitus Mild effusion TTP circumferentially around the patella and reproduction of pain with peripatellar tendon palpation supra-patellar effusion Psych Appearance: grossly normal Affect: normal affect Attitude: cooperative Assessment & Plan Assessment & Plan (1) Status post arthroscopic knee surgery: Comment: right knee arthroscopy with plica resection 08/23/2022 NE Code(s): Z98.890 - Other specified postprocedural states Plan: This is a 41 year old man S/P right knee plica resection, DOS: 08/23/22. He is S/P medial tibial plateau fracture without depression. This was a work-related injury on 06/18/21. He continues to have pain in the anterior aspect of his knee, especially with prolonged ambulation, and is limited in using stairs, in athletics and in general ADLs. He has slowly been recovering his ROM and quad strength with PT after surgery, but his pain has not improved compared to prior to surgery. In fact, he feels that it has worsened since knee . I recommend he continue with PT for ROM and strengthening, RICE with his Cryo-cuff, and NSAIDs. He should be mindful to not push through his pain as it may be exacerbating his inflammation. It has been 4 months since knee and he has failed to improve sufficiently to return to work. I anticipate MMI in 2-3 months as he still has residual swelling and pain from surgery. I also discussed a referral to pain management. I referred him to Dr. Arcos. He will follow up in 2 months. At this time he will remoain out of work. (2) Tibial plateau fracture: Code(s): S82.143A - Displaced bicondylar fracture of unspecified tibia, initial encounter for closed fracture (3) Effusion, left knee: Code(s): M25.462 - Effusion, left knee Plan Scribed for Bob Gonzalez MD by Jamie Pinedo, emergency medical services coordinator, on 01/02/23 at 2:50 PM, EST. Orders: Referrals Pain Management Referral M25.462 - Effusion, left knee, S82.143A - Displaced bicondylar fracture of unspecified tibia, initial encounter for closed fracture, Z98.890 - Other specified postprocedural states Coding Level of Care Code Est Pt Level 4 (79757) Diagnoses Status post arthroscopic knee surgery Z98.890 Tibial plateau fracture S82.143A Effusion, left knee M25.462
== END 2023-01-02 15:41 | disposition home or self-care (01) ==
PROVIDERS: Visit Provider Orthopaedic Surgery
DX: S82.143A Displaced bicondylar fracture of unspecified tibia, initial encounter for closed fracture (principal); M25.462 Effusion, left knee
CPT/HCPCS: 99212; 99214

== ENCOUNTER → 2023-01-02 14:22 | Outpatient (BNVA) | payer OTHER, BC, SELFPAY | PROVIDERS: Visit Provider Orthopaedic Surgery | DX: M25.462 Effusion, left knee (principal); S82.143D Displaced bicondylar fracture of unspecified tibia, subsequent encounter for closed fracture with routine healing; Y99.0 Civilian activity done for income or pay; Z98.890 Other specified postprocedural states | CPT/HCPCS: 99212 ==

== ENCOUNTER 2023-02-08 11:15 | Outpatient (REF) | payer OTHER, BC, SELFPAY ==
--- NOTE | ~2023-02-08 | MR_ITS ---
EXAMINATION: MR KNEE WITHOUT CONTRAST, RIGHT CLINICAL INFORMATION: Right knee pain COMPARISON: MRI 03/14/2022. Patient reports previous surgery. TECHNIQUE: MRI of the knee without contrast was performed using routine sequences on a high-field scanner. FINDINGS: MENISCI: Medial Meniscus: Intact Lateral Meniscus: Intact LIGAMENTS: Cruciate: Intact Collateral: Intact EXTENSOR MECHANISM: Intact ARTICULAR CARTILAGE/BONE: Patellofemoral Compartment: Normal Medial Compartment: Normal. No residual evidence of the posterior tibial trabecular microfracture. Lateral Compartment: Normal JOINT FLUID AND BURSAE: No significant joint effusion. Evidence of previous surgery with scarring along the posterior aspect of Hoffa's fat pad. Scarring or focal synovitis anterior to the distal ACL and adjacent to the inferior pole of the patella, a portion of which could represent thickening and edema of the infrapatellar plica. This is a new finding. MR/MR knee RT wo con IMPRESSION: 1. No meniscal tear. 2. No significant joint effusion. Scarring along the posterior aspect of Hoffa's fat pad. Scarring or focal synovitis anterior to the distal ACL and adjacent to the inferior pole of the patella. This could also represent injury to the infrapatellar plica. Correlate with interval surgery.
== END 2023-02-08 11:16 | disposition home or self-care (01) ==
LOC: HO.MRI 11:15
PROVIDERS: Visit Provider Orthopaedic Surgery
DX: Z98.890 Other specified postprocedural states (principal); S82.141D Displaced bicondylar fracture of right tibia, subsequent encounter for closed fracture with routine healing
CPT/HCPCS: 73721

== ENCOUNTER 2023-02-20 14:55 | Outpatient (AMB) | payer OTHER, BC, SELFPAY ==
--- NOTE | 2023-02-20 14:59 | A.OFFVIS_ITS ---
Intake Vital Signs 02/20/23 15:00 Height 6 ft 2 in Weight 238 lb BMI 30.6 BP 148/80 H Blood Pressure Location Rt brachial Position Sitting Respiration 14 Pulse 88 Pulse Source Pulse Oximeter Temp 98 F Pulse Oximetry (%) 98 Oxygen Delivery Method Room Air Intake Visit Reasons: EFFUSION, RIGHT KNEE Allergies No Known Allergies Allergy (Verified 02/20/23 15:04) Medication List - Last Reconciled 02/20/23 by Evita Mejia LPN ibuprofen 400 mg PO Q8H HPI EFFUSION, RIGHT KNEE HPI Details 42-year-old male who presents today to t he office for a right knee Pain. He had a medial tibial plateau fracture without depression due to a work-related injury on 06/18/21 with subsequent knee pain. He underwent right knee arthroscopy with plica resection on 08/23/[address] Gonzalez. The patient reports sharp pain in the anterior of his knee with going downstairs or prolonged walking activities that started after the work related injury on 06/18/21. He describes his pain as aching, stabbing, and burning sensations in his right knee. He has variable-intensity pain ranging from 1?10/10 in intensity, which is worse with weather changes and movements. His pain is worse when standing or walking. He states that going downward makes the pain worse than going upward on the stairs. He continues to have pain and edema despite the surgery, and he has completed a course of physical therapy without much benefit. He states that his knee leonora often when walking. He has been using a cryo- cuff device with significant benefits but continues to be concerned about his pain and swelling. 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 [facility] Medical History No pertinent past medical history Surgical History History of vasectomy Hx of tooth extraction Social History Are you a primary respiratory care program director to a significant other at home: No Do you presently have visiting nurse or other home services: No Patient Tobacco Use Status: Never used Tobacco Review of Systems Const All systems reviewed & are unremarkable except as noted in HPI and below Physical Exam Vital Signs: Last Vital Signs Temp 98 F 02/20/23 15:00 Pulse 88 02/20/23 15:00 Resp 14 02/20/23 15:00 BP 148/80 H 02/20/23 15:00 Pulse Ox 98 02/20/23 15:00 Oxygen Delivery Method Room Air 02/20/23 15:00 BMI result Body Mass Index 30.6 General: Appears afebrile. Alert and oriented. Mood and affect appropriate. Follows and participates in conversation appropriately. Respiratory effort is unlabored. Able to transition from sit to stand unassisted. Ambulates with bilaterally normal heel strike and toe off. No significant medial or lateral tenderness on palpation. No palpable joint effusions. Knee range of motion reproduces pain. Results Reviewed Results Reviewed: 02/08/23: MR KNEE WITHOUT CONTRAST, RIGHT FINDINGS: MENISCI: Medial Meniscus: Intact Lateral Meniscus: Intact LIGAMENTS: Cruciate: Intact Collateral: Intact EXTENSOR MECHANISM: Intact ARTICULAR CARTILAGE/BONE: Patellofemoral Compartment: Normal Medial Compartment: Normal. No residual evidence of the posterior tibial trabecular microfracture. Lateral Compartment: Normal JOINT FLUID AND BURSAE: No significant joint effusion. Evidence of previous surgery with scarring along the posterior aspect of Hoffa's fat pad. Scarring or focal synovitis anterior to the distal ACL and adjacent to the inferior pole of the patella, a portion of which could represent thickening and edema of the infrapatellar plica. This is a new finding. IMPRESSION: 1. No meniscal tear. 2. No significant joint effusion. Scarring along the posterior aspect of Hoffa's fat pad. Scarring or focal synovitis anterior to the distal ACL and adjacent to the inferior pole of the patella. This could also represent injury to the infrapatellar plica. Correlate with interval surgery. Assessment & Plan Assessment & Plan (1) Status post arthroscopic knee surgery: Comment: right knee arthroscopy with plica resection 08/23/2022 NE Code(s): Z98.890 - Other specified postprocedural states (2) Right knee pain: Code(s): M25.561 - Pain in right knee Qualifiers: Chronicity: chronic Qualified Code(s): M25.561 - Pain in right knee; G89.29 - Other chronic pain Plan Discussed temporary nerve stimulator vs. permanent nerve stimulator vs. PRP injections as possible treatment options. He is six-months post plica resection, with persistent residual edema indicating ongoing inflammation that might be contributing to his pain. We discussed continuing physical therapy and combining it with restorative/regenerative modalities for maximal benefit in the terminal carman. Given history of knee injury status post knee arthroscopy and multiple rounds of physical therapy with persistent pain that is up to 10 out of 10 in intensity and is keeping him out of work, we will proceed with a trial of right femoral nerve stimulator placement as the next step for intractable knee pain. He has also trialed and failed oral medications including acetaminophen and NSAIDs. We discussed the risks and benefits of the procedure with the patient in detail. All questions were answered. The patient is on board with the plan. I also discussed the role of PRP injections in healing from traumatic injuries of the knee. We can consider this in the future if neuromodulation is not helpful. Scribed for Dr. Arcos by Tripp Kirk, medical massage therapist, on 02/20/2023. I, Dr. Arcos, have personally reviewed and agree with the information entered by the scribe. Coding Level of Care Code New Pt Level 4 (21240) Diagnoses Status post arthroscopic knee surgery Z98.890 Chronic pain of right knee M25.561; G89.29 Chronicity: chronic
[2023-02-20 15:00] VITALS: BP 148/80; PULSE 88; RESP 14; TEMP 36.6; O2SAT 98; BMI 30.6
== END 2023-02-20 15:36 | disposition home or self-care (01) ==
PROVIDERS: Visit Provider Internal Medicine
DX: G89.29 Other chronic pain (principal); M25.561 Pain in right knee; Z98.890 Other specified postprocedural states
CPT/HCPCS: 99204

== ENCOUNTER → 2023-02-20 14:55 | Outpatient (BNVA) | payer OTHER, BC, SELFPAY | PROVIDERS: Visit Provider Internal Medicine ==

== ENCOUNTER 2023-03-09 13:41 | Outpatient (AMB) | payer BC, SELFPAY ==
--- NOTE | 2023-03-09 13:43 | MHC.OFFVIS ---
Intake Vital Signs 03/09/23 13:44 Height 6 ft 2 in Weight 238 lb BMI 30.6 Intake Visit Reasons: OV- S/P -RT knee WC 08/23/22 NE Intake Note: John is a 42 year old male who presents today for a follow up of his right knee. Hx of Right Knee 08/23/22. He remains out of work at this time, at his last appointment he was given a referral to pain mgmt. They discussed PRP injections as well as Femoral Nerve Stimulator. He reports that he is feeling about the same. He will need updated work note today as he is currently still out of work. Allergies No Known Allergies Allergy (Verified 02/20/23 15:04) HPI OV- S/P -RT knee WC 08/23/22 NE HPI Details John is a 42 year old man who returns ~6 months S/P right knee plica resection. He says he continues to have a sharp pain in the anterior of his knee with going downstairs or prolonged walking activities. He says is knee leonora often when walking. He continues to work with PT on quad strengthening exercises, which he says has been helping him. He has been using a Cryo-cuff device, which he finds helpful. but he continues to be concerned with his pain & swelling. He says his pain feels similar to prior to his surgery, and he is concerned that this will not resolve. He has been seen by Pain Management and has agreed to proceed with a femoral nerve stimulator trial, this has yet to be scheduled. They also discussed a PRP injection, which he is considering. He remains out of work as a [employer] [facility] Medical History No pertinent past medical history Surgical History History of vasectomy Hx of tooth extraction Social History Are you a primary child care specialist to a significant other at home: No Do you presently have visiting nurse or other home services: No Patient Tobacco Use Status: Never used Tobacco Review of Systems Const All systems reviewed & are unremarkable except as noted in HPI and below Physical Exam Vital Signs: BMI result Body Mass Index 30.6 Const General: no acute distress, alert and awake Orientation/consciousness: patient oriented x3 HEENT Head: Yes normocephalic and Yes atraumatic Eyes EOM: EOMs intact bilaterally Resp Effort & Inspection: normal respiratory effort and able to speak in complete sentences Cardio Jugular venous distension: no JVD Skin General skin exam: turgor normal Rashes: no rashes Neuro General: patient oriented x3 Psych Appearance: grossly normal Affect: normal affect Attitude: cooperative Results Reviewed Results Reviewed: I personally reviewed relevant MR images 1. No meniscal tear. 2. No significant joint effusion. Scarring along the posterior aspect of Hoffa's fat pad. Scarring or focal synovitis anterior to the distal ACL and adjacent to the inferior pole of the patella. This could also represent injury to the infrapatellar plica. Correlate with interval surgery. Assessment & Plan Assessment & Plan (1) Posttraumatic arthropathy: Code(s): M19.92 - Post-traumatic osteoarthritis, unspecified site Plan: This is a 42 year old man with post-traumatic arthropathy, S/P right knee plica resection, DOS: 08/23/22. He is S/P medial tibial plateau fracture without depression. This was a work-related injury on 06/18/21. He continues to have pain in the anterior aspect of his knee, especially with prolonged ambulation, and is limited in using stairs, in athletics and in general ADLs. He has slowly been recovering his ROM and quad strength with PT after surgery, but his pain has not improved compared to prior to his injury. In fact, he feels that it has worsened since his knee . He is in discussion with Pain Management for a FNS trial, but this has yet to be scheduled. I discussed PRP injections as well as a GNB trial with him and will reach out to Dr. Arcos to discuss these treatment options. I recommend he continue with PT, Cryo-cuff usage, and NSAIDs. He was given a note to continue his current restrictions. I recommend he seek a second opinion as well as I do not have any alternative treatments. (2) Status post arthroscopic knee surgery: Comment: right knee with plica resection 08/23/2022 NE Code(s): Z98.890 - Other specified postprocedural states (3) Effusion, left knee: Code(s): M25.462 - Effusion, left knee Plan Scribed for Bob Gonzalez MD by Jamie Pinedo, medical coding specialist, on 03/09/23 at 2:00 PM, EST. Coding Level of Care Code Est Pt Level 3 (96436) Diagnoses Posttraumatic arthropathy M19.92 Status post arthroscopic knee surgery Z98.890 Effusion, left knee M25.462
[2023-03-09 13:44] VITALS: BMI 30.6
== END 2023-03-09 14:11 | disposition home or self-care (01) ==
PROVIDERS: Visit Provider Orthopaedic Surgery
DX: M17.11 Unilateral primary osteoarthritis, right knee (principal); M25.462 Effusion, left knee
CPT/HCPCS: 99213

== ENCOUNTER → 2023-03-09 13:41 | Outpatient (BNVA) | payer OTHER, BC, SELFPAY | PROVIDERS: Visit Provider Orthopaedic Surgery | DX: M19.92 Post-traumatic osteoarthritis, unspecified site (principal); M25.462 Effusion, left knee; Z98.890 Other specified postprocedural states | CPT/HCPCS: 99212 ==

== ENCOUNTER 2023-05-08 14:16 | Outpatient (AMB) | payer OTHER, BC, SELFPAY ==
[2023-05-08 14:21] VITALS: BP 156/84; PULSE 99; RESP 12; O2SAT 98
--- NOTE | 2023-05-08 14:21 | A.OFFVIS_ITS ---
Intake Vital Signs 05/08/23 14:21 Height 6 ft 2 in Weight 0 oz BMI 0.0 BP 156/84 H Blood Pressure Location Lt brachial Position Sitting Respiration 12 Pulse 99 Pulse Source Pulse Oximeter Pulse Oximetry (%) 98 Oxygen Delivery Method Room Air Intake Visit Reasons: right Dx genicular/LMOVM Allergies No Known Allergies Allergy (Verified 05/08/23 14:22) Medication List - Last Reconciled 05/08/23 by Evita Mejia LPN ibuprofen 400 mg PO Q8H HPI right Dx genicular/LMOVM HPI Details 42-year-old male who presents today to t office for a right diagnostic genicular nerve block. Denies any recent cough, cold, infection, fever or other significant changes in medical history since last office visit. [facility] Medical History No pertinent past medical history Surgical History History of vasectomy Hx of tooth extraction Social History Are you a primary direct care staffer to a significant other at home: No Do you presently have visiting nurse or other home services: No Patient Tobacco Use Status: Never used Tobacco Review of Systems Const All systems reviewed & are unremarkable except as noted in HPI and below Physical Exam Vital Signs: Last Vital Signs Pulse 99 05/08/23 14:21 Resp 12 05/08/23 14:21 BP 156/84 H 05/08/23 14:21 Pulse Ox 98 05/08/23 14:21 Oxygen Delivery Method Room Air 05/08/23 14:21 BMI result Body Mass Index 0.0 General: Appears afebrile. Alert and oriented. Mood and affect appropriate. Follows and participates in conversation appropriately. Respiratory effort is unlabored. Able to transition from sit to stand unassisted. Ambulates with bilaterally normal heel strike and toe off. Ultrasound examination of the right knee joint did not reveal any medial or lateral meniscal abnormality. No associated joint effusions. Office Procedures Nerve Block Details: Right genicular nerve blocks, ultrasound guided After obtaining written consent, pre-procedure blood pressure and heart rate were stable and recorded in the nursing record. The patient was placed in the sitting position. The area overlying the peripheral nerves was widely prepped with chloraprep, allowed to dry and sterilely draped. Using ultrasound, the appropriate landmarks were identified. A 25 gauge 1.5 inch needle was advanced under ultrasound guidance to the appropriate landmark of each peripheral nerve. Aspiration was negative for heme and synovial fluid. 1 cc of bupivacaine 0.5% mixed with Decadron 3 mg was injected around each targeted nerve. The needles were removed, skin cleansed and a sterile bandage was applied. The patient tolerated the procedure well and no complications were encountered. Following the procedure the patient's vital signs were stable. The patient was discharged home in good condition with post-procedural instructions. Time Out: Immediately prior to the procedure, the following was verbally confirmed that there is a signed consent form and that the correct patient, planned procedure, site and side are consistent with documentation and that necessary equipment and/or blood products are available prior to the start of the case. Complications: none EBL: <5 cc Note: An ultrasound image of the injection was taken and stored in the permanent record. 44543 - Geniculate (knee) Procedure code (CPT) selection complete Results Reviewed Results Reviewed: No imaging is available for review. Assessment & Plan Assessment & Plan (1) Right knee pain: Code(s): M25.561 - Pain in right knee Qualifiers: Chronicity: chronic Qualified Code(s): M25.561 - Pain in right knee; G89.29 - Other chronic pain (2) Posttraumatic arthropathy: Code(s): M19.92 - Post-traumatic osteoarthritis, unspecified site Plan Patient is status post right genicular nerve blocks, ultrasound guided. Patient tolerated procedure well and was discharged home in stable condition with discharge instructions. All questions were answered. Once again discussed a combination of femoral nerve stimulation with the Sprint device and trial of 2-3 rounds of platelet rich plasma injections intra- articularly for rehabilitation of his right ACL and associated knee injury. Patient will let us know how he does with these therapeutic genicular nerve blocks and decide accordingly if he would like to move forward with any of the other propose therapies. Scribed for Dr. Arcos by Tripp Kirk, medical lab director, on 05/08/2023. I, Dr. Arcos, have personally reviewed and agree with the information entered by the scribe. Coding Level of Care Code Est Pt Level 4 (85079) Diagnoses Chronic pain of right knee M25.561; G89.29 Chronicity: chronic Posttraumatic arthropathy M19.92 CPT Codes Nerve Block - Nerve Block 8: 52984 - Geniculate (knee) ([id number])
== END 2023-05-08 14:48 | disposition home or self-care (01) ==
PROVIDERS: Visit Provider Internal Medicine
DX: M25.561 Pain in right knee (principal)
CPT/HCPCS: 64450; 76942

== ENCOUNTER → 2023-05-08 14:16 | Outpatient (BNVA) | payer OTHER, BC, SELFPAY | PROVIDERS: Visit Provider Internal Medicine | DX: G89.29 Other chronic pain (principal); M25.561 Pain in right knee; M19.92 Post-traumatic osteoarthritis, unspecified site | CPT/HCPCS: 64450; J0665; J1100 ==

== ENCOUNTER 2023-07-13 06:06 | Outpatient (REF) | payer OTHER, BC, SELFPAY | END 2023-07-13 06:07 | disposition home or self-care (01) | LOC: CF 06:06 | PROVIDERS: Visit Provider Internal Medicine | DX: Z13.89 Encounter for screening for other disorder (principal) ==

== ENCOUNTER 2023-07-13 13:35 | Outpatient (AMB) | payer OTHER, BC, SELFPAY ==
[2023-07-13 13:40] VITALS: BP 140/78; PULSE 105; RESP 14; O2SAT 98; BMI 28.9
--- NOTE | 2023-07-13 13:40 | MHC.OFFVIS ---
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 Denies any recent cough, cold, infection, fever or other significant changes in medical history since last office visit. [facility] Medical History No pertinent past medical history Surgical History History of vasectomy Hx of tooth extraction Social History Are you a primary pet care worker to a significant other at home: No Do you presently have visiting nurse or other home services: No Patient Tobacco Use Status: Never used Tobacco Physical Exam Vital Signs: Last Vital Signs Pulse 80 07/13/23 14:50 Resp 14 07/13/23 14:50 BP 132/60 07/13/23 14:50 Pulse Ox 98 07/13/23 14:50 Oxygen Delivery Method Room Air 07/13/23 14:50 BMI result Body Mass Index 28.9 Office Procedures Platelet Rich Plasma Injection PRP Joint Injection Intra-articular platelet rich plasma injection, right knee After informed written consent was obtained, pre-procedure oxygen saturation, heart rate, and blood pressure were recorded. Casimiro 18 gauge butterfly needle was used to obtain 50 mL of whole blood from the right antecubital fossa. This was then mixed with 10 mL anticoagulant citrate dextrose solution. The 60 mL mixture was counter balanced to within 0.5 g and spun at 3500 rpm for 12 minutes. Platelet poor plasma was then drawn and wasted using a bench top press model. 6 mL of slightly leukocyte rich PRP was isolated in a 10 cc syringe. The patient was then placed in a sitting position in the medial and lateral parapatellar access points identified. The skin was prepped with Chloroprep. The syringe was then connected to a 25 gauge needle which was introduced into the right knee joint 1st from the medial parapatellar space. 4 mL of PRP was administered and the needle was withdrawn. The joint was then accessed from the lateral parapatellar space and the remaining 2 mL of PRP was administered. There was no evidence of paresthesias throughout needle placement. The patient tolerated the procedure well and there was no evidence of procedural complications. EBL: 55 mL XCELL Platelet Plasma - 0232T 60 mL All charges added?: Procedure code (CPT) selection complete Assessment & Plan Assessment & Plan (1) Posttraumatic arthropathy: Code(s): M19.92 - Post-traumatic osteoarthritis, unspecified site (2) Right knee pain: Code(s): M25.561 - Pain in right knee Qualifiers: Chronicity: chronic Qualified Code(s): M25.561 - Pain in right knee; G89.29 - Other chronic pain Plan Patient is status post intra-articular right knee PRP injection. Patient tolerated procedure well and was discharged home in stable condition with discharge instructions. All questions were answered. We will follow-up via telephone or in clinic to assess response to therapy. A follow-up appointment was made during today's visit. Orders: Orders AMB Platelet Rich Plasma (PRP) Injection Today M19.92 - Post-traumatic osteoarthritis, unspecified site, M25.561 - Pain in right knee Coding Level of Care Code Procedure Only Diagnoses Posttraumatic arthropathy M19.92 Chronic pain of right knee M25.561; G89.29 Chronicity: chronic CPT Codes XCELL Kit 60mL ([id number]) XCELL Kit 120mL ([id number])
[2023-07-13 14:50] VITALS: BP 132/60; PULSE 80; RESP 14; O2SAT 98; BMI 28.9
== END 2023-07-13 14:49 | disposition home or self-care (01) ==
LOC: HO.PMCPRC 13:35
PROVIDERS: Visit Provider Internal Medicine
DX: M17.31 Unilateral post-traumatic osteoarthritis, right knee (principal); M25.561 Pain in right knee; G89.29 Other chronic pain
CPT/HCPCS: 0232T

== ENCOUNTER 2023-12-18 13:00 | Outpatient (RCR) | payer OTHER, BC, SELFPAY | END 2024-03-05 16:19 | disposition home or self-care (01) | LOC: HO.PTWFD 13:00 | PROVIDERS: Visit Provider Orthopaedic Surgery | DX: M76.51 Patellar tendinitis, right knee (principal) | CPT/HCPCS: 97110; 97140; 97162; 97535 ==